=== PATIENT | female | born 1945 | race Caucasian/White ===

== ENCOUNTER → 2016-08-22 | Outpatient (REF) | payer MEDICARE ==
[2016-08-22 11:09] LABS: MEAN CORPUSCULAR HEMOGLOBIN 32.1 pg (27.0-33.0); MEAN CORPUSCULAR HGB CONC 31.6 g/dl (32.0-36.5); MEAN CORPUSCULAR VOLUME 101.6 fl (80.0-96.0); WHITE BLOOD COUNT 5.2 K/mm3 (4.0-10.0)
[2016-08-22 12:06] LABS: ALBUMIN 3.6 GM/DL (3.2-5.2); ALBUMIN/GLOBULIN RATIO 1.24 (1.00-1.93); ALKALINE PHOSPHATASE 56 U/L (45-117); ALT/SGPT 23 U/L (12-78); ANION GAP 9 MEQ/L (8-16); AST/SGOT 14 U/L (15-37); BILIRUBIN,TOTAL 0.5 MG/DL (0.2-1.0); BLOOD UREA NITROGEN 16 MG/DL (7-18); CALCIUM LEVEL 9.2 MG/DL (8.8-10.2); CARBON DIOXIDE LEVEL 28 MEQ/L (21-32); CHLORIDE LEVEL 104 MEQ/L (98-107); CHOLESTEROL LEVEL 181 MG/DL (<200); CREATININE FOR GFR 0.68 MG/DL (0.55-1.02); GLOMERULAR FILTRATION RATE > 60.0 (>39); GLUCOSE, FASTING 82 MG/DL (83-110); POTASSIUM SERUM 4.5 MEQ/L (3.5-5.1); SODIUM LEVEL 141 MEQ/L (136-145); TOTAL PROTEIN 6.5 GM/DL (6.4-8.2); TRIGLYCERIDES LEVEL 52 MG/DL (<150)
== END ==
LOC: M SFHCPLAZ 08:32
PROVIDERS: ATTEND Internal Medicine
DX: Z00.00 Encounter for general adult medical examination without abnormal findings (principal); M81.0 Age-related osteoporosis without current pathological fracture; Z85.3 Personal history of malignant neoplasm of breast

== ENCOUNTER → 2016-10-01 | Outpatient (REF) | payer MEDICARE | LOC: M SFHCPLAZ 11:26 | PROVIDERS: ATTEND Dermatology | DX: C44.519 Basal cell carcinoma of skin of other part of trunk (principal); D18.01 Hemangioma of skin and subcutaneous tissue; C44.329 Squamous cell carcinoma of skin of other parts of face | CPT/HCPCS: 11100; 11101; 88305; G0463 ==

== ENCOUNTER → 2016-12-31 | Outpatient (CLI) | payer MEDICARE ==
--- NOTE | 2016-12-31 14:14 | REP ---
Clinical: Pelvic pain. Comparison: 12/26/2013 . Technique: Transabdominal pelvic ultrasound followed by transvaginal examination for better evaluation of the endometrium and adnexa with color Doppler evaluation of the ovaries. Findings: Bladder is unremarkable and measures 10.5 x 8.5 x 7.6 cm . Anteverted myomatous uterus measures 6.8 x 3.2 x 4.7 cm . The endometrial complex measures 2.2 mm thickness. Partially calcified left anterior fibroid measures 1.6 cm maximal diameter; partially calcified posterior right fibroid measures 1.6 cm maximal diameter. Right ovary is normal in appearance and vascularity without evidence for torsion. Right ovary measures 2.0 x 1.3 x 1.0 cm ; R I = 0.31 . Left ovary is not visualized. No pelvic fluid or adnexal mass lesion . Impression: Anteverted uterus with two partially calcified fibroids similar to prior examination. Normal right ovary. Left ovary not visualized. Signed by Bebo Whitaker MD 12/31/2016 02:05 P
== END ==
LOC: M RAD 13:20
PROVIDERS: ATTEND Obstetrics & Gynecology
DX: R10.2 Pelvic and perineal pain (principal); N85.4 Malposition of uterus

== ENCOUNTER → 2017-01-07 | Outpatient (REF) | payer MEDICARE | LOC: M SFHCPLAZ 11:38 | PROVIDERS: ATTEND Dermatology | DX: C44.722 Squamous cell carcinoma of skin of right lower limb, including hip (principal) | CPT/HCPCS: 11100; 11900; 17000; 17003; 88305; G0463; J3301 ==

== ENCOUNTER → 2017-08-27 | Outpatient (REF) | payer MEDICARE ==
[2017-08-27 12:28] LABS: HEMATOCRIT 36.2 % (36.0-47.0); HEMOGLOBIN 11.8 g/dl (12.0-16.0); MEAN CORPUSCULAR HEMOGLOBIN 32.2 pg (27.0-33.0); MEAN CORPUSCULAR HGB CONC 32.6 g/dl (32.0-36.5); MEAN CORPUSCULAR VOLUME 98.6 fl (80.0-96.0); PLATELET COUNT, AUTOMATED 252 10^3/uL (150-450); RED BLOOD COUNT 3.67 10^6/uL (4.00-5.40); WHITE BLOOD COUNT 4.9 10^3/uL (4.0-10.0)
[2017-08-27 13:01] LABS: ALBUMIN 3.6 GM/DL (3.2-5.2); ALBUMIN/GLOBULIN RATIO 1.33 (1.00-1.93); ALKALINE PHOSPHATASE 54 U/L (45-117); ALT/SGPT 19 U/L (12-78); ANION GAP 6 MEQ/L (8-16); AST/SGOT 16 U/L (7-37); BILIRUBIN,TOTAL 0.3 MG/DL (0.2-1.0); BLOOD UREA NITROGEN 20 MG/DL (7-18); CALCIUM LEVEL 9.3 MG/DL (8.8-10.2); CARBON DIOXIDE LEVEL 29 MEQ/L (21-32); CHLORIDE LEVEL 108 MEQ/L (98-107); CHOLESTEROL LEVEL 177 MG/DL (<200); CHOLESTEROL RISK RATIO 2.458 (<5); CREATININE FOR GFR 0.63 MG/DL (0.55-1.02); GLOMERULAR FILTRATION RATE > 60.0 (>39); GLUCOSE, FASTING 88 MG/DL (83-110); HDL CHOLESTEROL 72 MG/DL (>40); LDL CHOLESTEROL 93.4 MG/DL (<100); NON-HDL-C 105 MG/DL; POTASSIUM SERUM 4.3 MEQ/L (3.5-5.1); SODIUM LEVEL 143 MEQ/L (136-145); TOTAL PROTEIN 6.3 GM/DL (6.4-8.2); TRIGLYCERIDES LEVEL 58 MG/DL (<150)
== END ==
LOC: M SFHCPLAZ 08:04
DX: Z00.00 Encounter for general adult medical examination without abnormal findings (principal); M81.0 Age-related osteoporosis without current pathological fracture; Z85.3 Personal history of malignant neoplasm of breast; Z79.899 Other long term (current) drug therapy
CPT/HCPCS: 80053

== ENCOUNTER → 2018-08-26 | Outpatient (REF) | payer MEDICARE ==
[2018-08-26 13:14] LABS: HEMATOCRIT 37.7 % (36.0-47.0); HEMOGLOBIN 12.2 g/dl (12.0-15.5); MEAN CORPUSCULAR HEMOGLOBIN 32.4 pg (27.0-33.0); MEAN CORPUSCULAR HGB CONC 32.4 g/dl (32.0-36.5); MEAN CORPUSCULAR VOLUME 100.3 fl (80.0-96.0); PLATELET COUNT, AUTOMATED 228 10^3/uL (150-450); RED BLOOD COUNT 3.76 10^6/uL (4.00-5.40); WHITE BLOOD COUNT 6.2 10^3/uL (4.0-10.0)
[2018-08-26 13:43] LABS: ALBUMIN 3.7 GM/DL (3.2-5.2); ALT/SGPT 18 U/L (12-78); BILIRUBIN,TOTAL 0.5 MG/DL (0.2-1.0); BLOOD UREA NITROGEN 16 MG/DL (7-18); CALCIUM LEVEL 9.7 MG/DL (8.8-10.2); CARBON DIOXIDE LEVEL 28 MEQ/L (21-32); CHLORIDE LEVEL 106 MEQ/L (98-107); CHOLESTEROL LEVEL 175 MG/DL (<200); CREATININE FOR GFR 0.66 MG/DL (0.55-1.30); GLOMERULAR FILTRATION RATE > 60.0 (>39); GLUCOSE, FASTING 79 MG/DL (70-100); HDL CHOLESTEROL 70 MG/DL (>40); LDL CHOLESTEROL 92 MG/DL (<100); NON-HDL-C 105 MG/DL; POTASSIUM SERUM 4.4 MEQ/L (3.5-5.1); SODIUM LEVEL 139 MEQ/L (136-145); TOTAL PROTEIN 6.5 GM/DL (6.4-8.2); TRIGLYCERIDES LEVEL 67 MG/DL (<150)
== END ==
LOC: M SFHCPLAZ 08:32
PROVIDERS: ATTEND Internal Medicine
DX: Z85.3 Personal history of malignant neoplasm of breast (principal); Z00.00 Encounter for general adult medical examination without abnormal findings

== ENCOUNTER → 2020-02-20 | Outpatient (CLI) | payer MEDICARE ==
[~2020-02-20] MED LIST: CALC600C3 PO; META0.52 PO; NOXI1TAB PO; PROL60SO SC
== END ==
LOC: M LABSMTC 11:13
PROVIDERS: ATTEND Anesthesiology
DX: Z01.818 Encounter for other preprocedural examination (principal); Z11.59 Encounter for screening for other viral diseases
CPT/HCPCS: C9803; U0003

== ENCOUNTER 2020-02-23 12:34 | Day surgery (SDC) | payer MEDICARE ==
[~2020-02-23] VITALS: Ht 165.1 cm; Wt 59.1 kg
[~2020-02-23 12:34] MED LIST changes: +LR 1,000 ML IV ONE
[2020-02-23] MEDS ORDERED: LIDOCAINE VISCOUS 2% SOLN 15ML UDC As Ordered ONE (13:48)
[2020-02-23] MEDS ORDERED: CETACAINE SPRAY 5GM As Ordered ONE (13:48)
[2020-02-23] MEDS ORDERED: propofoL 200 MG/20 ML VIAL As Ordered ONE (14:04)
[2020-02-23] MEDS ORDERED: LIDOCAINE 2% 100MG/5ML SDV (FOR ANES.) As Ordered ONE (14:04)
[2020-02-23 15:20] VITALS: BP 154/72
--- NOTE | 2020-02-23 22:50 | T-ECHO ---
DATE OF PROCEDURE: 02/23/2020 REFERRING PHYSICIAN: Dr. Jaylon Álvarez PREPROCEDURE DIAGNOSIS: Mitral valve prolapse with mitral regurgitation. PREPROCEDURE DIAGNOSIS: Mitral valve prolapse with mitral regurgitation. PRINCIPAL FINDINGS: Mitral valve prolapse of both mitral leaflets, especially the posterior mitral leaflet. Associated broken chordae involving the posterior mitral leaflet. Associated moderately-severe mitral regurgitation. PROCEDURE PERFORMED: Transesophageal echocardiogram. PROCEDURE PERFORMED BY: Jaylon Álvarze MD PERSONAL CONSULTANT: None. IV SEDATION: Monitored anesthetic care (propofol) as administered by [employer] RN CARE COORDINATOR. COMPLICATIONS: None. DESCRIPTION OF PROCEDURE: The patient received viscous lidocaine to gargle and swallow. Following this, she received propofol IV as administered by the [employer] RN CARE COORDINATOR. After receiving adequate sedation, esophageal intubation was accomplished by Dr. Álvarez using a Shira three-dimensional transesophageal echocardiogram probe. Rhythm was sinus. The left and right ventricle appeared normal in size and systolic function. Left ventricle ejection fraction was 65%-70% by visual estimate. No regional wall motion abnormalities of the ventricles. The left atrium appeared to be at least mildly enlarged. The left atrial appendage appeared to be at least moderately enlarged. Pulse wave Doppler in the left lower pulmonary vein did not show any systolic flow reversal. The atrial septum appeared intact anatomically and by color flow Doppler. The mitral leaflets were diffusely myxomatous. There was mild prolapse of the anterior mitral leaflet, and there was fairly extensive prolapse involving the posterior mitral leaflet, especially the middle scallop. Associated with the middle scallop of the posterior mitral leaflet were some broken chordae. There were two jets of mitral valve regurgitation for a combined total degree of mitral valve regurgitation judged to be moderately-severe. One of the jets was central and the other jet was a wall jet directed anteriorly along the anterior mitral leaflet. The tricuspid leaflets were only moderately well visualized but appear to be normal. Very mild tricuspid regurgitation. Aortic valve was 3-cusp and was structurally and functionally normal. Pulmonic valve was structurally and functionally normal. No pulmonic regurgitation. No pericardial effusion. Distal aortic arch and descending thoracic aorta were normal. CONCLUSIONS: 1. Myxomatous mitral leaflets with mild prolapse of the anterior mitral leaflet and extensive prolapse of the posterior mitral leaflet, especially the mid scallop of the posterior mitral leaflet (P2). Associated broken chordae in association with the posterior mitral leaflet. Moderately-severe mitral regurgitation. 2. No tricuspid valve prolapse. 3. At least mild left atrial enlargement and moderate dilatation of the left atrial appendage. 4. Normal left and right ventricle systolic function and size. Left ventricular ejection fraction (LVEF) 65-70%. ADDITIONAL COMMENTS AND RECOMMENDATIONS: My plan is to meet with the patient in the office next week to go over results of the transesophageal echocardiogram, at which time I will recommend mitral valve repair.
== END 2020-02-23 15:32 | disposition home or self-care (01) ==
LOC: M SDC 12:34
PROVIDERS: ATTEND Internal Medicine Cardiovascular Disease
DX: I34.1 Nonrheumatic mitral (valve) prolapse (principal); I34.0 Nonrheumatic mitral (valve) insufficiency; I44.0 Atrioventricular block, first degree; Z85.3 Personal history of malignant neoplasm of breast; Z88.2 Allergy status to sulfonamides; Z79.899 Other long term (current) drug therapy; Z92.21 Personal history of antineoplastic chemotherapy; Z92.3 Personal history of irradiation

== ENCOUNTER → 2020-02-25 | Outpatient (CLI) | payer MEDICARE ==
[~2020-02-25] MED LIST changes: -LR 1,000 ML IV ONE
== END ==
LOC: M LABSMTC 11:02
PROVIDERS: ATTEND Anesthesiology
DX: Z01.818 Encounter for other preprocedural examination (principal); Z11.59 Encounter for screening for other viral diseases
CPT/HCPCS: C9803; U0003

== ENCOUNTER → 2020-05-02 | Outpatient (CLI) | payer MEDICARE ==
[2020-05-02 11:15] LABS: BASO # 0.1 10^3/uL (0.0-0.2); BASO % 0.6 % (0.0-1.0); LYMPH # 2.5 10^3/uL (1.5-5.0); MEAN CORPUSCULAR HEMOGLOBIN 30.7 pg (27.0-33.0); MEAN CORPUSCULAR HGB CONC 31.3 g/dl (32.0-36.5); MEAN CORPUSCULAR VOLUME 98.2 fl (80.0-96.0); MONO # 0.9 10^3/uL (0.0-0.8); MONO % 11.2 % (0.0-5.0); NEUTROPHILS # 4.3 10^3/uL (1.5-8.5); NEUTROPHILS % 55.9 % (36.0-66.0); PLATELET COUNT, AUTOMATED 323 10^3/uL (150-450); RED BLOOD COUNT 3.26 10^6/uL (4.00-5.40); WHITE BLOOD COUNT 7.7 10^3/uL (4.0-10.0)
[2020-05-02 11:23] LABS: ALBUMIN 3.2 GM/DL (3.2-5.2); ALT/SGPT 71 U/L (12-78); BILIRUBIN,TOTAL 0.5 MG/DL (0.2-1.0); BLOOD UREA NITROGEN 17 MG/DL (7-18); CARBON DIOXIDE LEVEL 27 MEQ/L (21-32); CHLORIDE LEVEL 108 MEQ/L (98-107); CREATININE FOR GFR 0.56 MG/DL (0.55-1.30); GLOMERULAR FILTRATION RATE > 60.0 (>39); GLUCOSE, FASTING 86 MG/DL (70-100); POTASSIUM SERUM 4.6 MEQ/L (3.5-5.1); SODIUM LEVEL 138 MEQ/L (136-145); TOTAL PROTEIN 5.9 GM/DL (6.4-8.2)
== END ==
LOC: M PLALAB 08:31
PROVIDERS: ATTEND Internal Medicine
DX: D62 Acute posthemorrhagic anemia (principal); E87.6 Hypokalemia

== ENCOUNTER → 2020-05-29 | Outpatient (CLI) | payer MEDICARE ==
[2020-05-29 10:55] LABS: HEMATOCRIT 32.7 % (36.0-47.0); HEMOGLOBIN 10.1 g/dl (12.0-15.5); MEAN CORPUSCULAR HEMOGLOBIN 29.6 pg (27.0-33.0); MEAN CORPUSCULAR HGB CONC 30.9 g/dl (32.0-36.5); MEAN CORPUSCULAR VOLUME 95.9 fl (80.0-96.0); PLATELET COUNT, AUTOMATED 448 10^3/uL (150-450); RED BLOOD COUNT 3.41 10^6/uL (4.00-5.40); WHITE BLOOD COUNT 6.6 10^3/uL (4.0-10.0)
== END ==
LOC: M PLALAB 09:01
PROVIDERS: ATTEND Internal Medicine
DX: D64.9 Anemia, unspecified (principal)

== ENCOUNTER → 2020-08-30 | Outpatient (REF) | payer MEDICARE ==
[2020-08-30 10:37] LABS: HEMATOCRIT 38.2 % (36.0-47.0); HEMOGLOBIN 11.7 g/dl (12.0-15.5); MEAN CORPUSCULAR HEMOGLOBIN 29.1 pg (27.0-33.0); MEAN CORPUSCULAR HGB CONC 30.6 g/dl (32.0-36.5); PLATELET COUNT, AUTOMATED 226 10^3/uL (150-450); RED BLOOD COUNT 4.02 10^6/uL (4.00-5.40); WHITE BLOOD COUNT 6.8 10^3/uL (4.0-10.0)
[2020-08-30 11:20] LABS: ALBUMIN 3.8 GM/DL (3.2-5.2); ALT/SGPT 26 U/L (12-78); BILIRUBIN,TOTAL 0.5 MG/DL (0.2-1.0); BLOOD UREA NITROGEN 18 MG/DL (7-18); CARBON DIOXIDE LEVEL 29 MEQ/L (21-32); CHLORIDE LEVEL 105 MEQ/L (98-107); CHOLESTEROL LEVEL 188 MG/DL (<200); CHOLESTEROL RISK RATIO 2.611 (<5); CREATININE FOR GFR 0.72 MG/DL (0.55-1.30); GLOMERULAR FILTRATION RATE > 60.0 (>39); GLUCOSE, FASTING 83 MG/DL (70-100); HDL CHOLESTEROL 72 MG/DL (>40); LDL CHOLESTEROL 101 MG/DL (<100); NON-HDL-C 116 MG/DL; POTASSIUM SERUM 4.3 MEQ/L (3.5-5.1); SODIUM LEVEL 139 MEQ/L (136-145); TOTAL PROTEIN 6.2 GM/DL (6.4-8.2); TRIGLYCERIDES LEVEL 74 MG/DL (<150)
== END ==
LOC: M PLALAB 08:14
PROVIDERS: ATTEND Internal Medicine
DX: Z00.00 Encounter for general adult medical examination without abnormal findings (principal); Z85.3 Personal history of malignant neoplasm of breast; Z79.899 Other long term (current) drug therapy

== ENCOUNTER → 2020-10-25 | Outpatient (REF) | payer MEDICARE ==
[2020-10-25 12:43] LABS: APPEARANCE, URINE CLEAR (CLEAR); BACTERIA, URINE AUTO 1+ (NEGATIVE); BILIRUBIN, URINE AUTO NEGATIVE (NEGATIVE); BLOOD, URINE BLOOD NEGATIVE (NEGATIVE); COLOR, URINE YELLOW (YELLOW); GLUCOSE, URINE (UA) AUTO NEGATIVE (NEGATIVE); KETONE, URINE AUTO NEGATIVE (NEGATIVE); LEUKOCYTE ESTERASE, URINE AUTO 3+ (NEGATIVE); NITRITE, URINE AUTO NEGATIVE (NEGATIVE); PROTEIN, URINE AUTO NEGATIVE (NEGATIVE); RBC, URINE AUTO 0 /HPF (0-3); SQUAMOUS EPITHELIAL CELL UR AU 3 /HPF (0-6); UROBILINOGEN, URINE AUTO 0.2 mg/dL (0.0-2.0); WBC, URINE AUTO 4 /HPF (0-3)
== END ==
LOC: M LAB REF 12:17
PROVIDERS: ATTEND Obstetrics & Gynecology
DX: N39.0 Urinary tract infection, site not specified (principal)

== ENCOUNTER → 2021-03-04 | Outpatient (CLI) | payer MEDICARE ==
[~2021-03-04] MED LIST changes: +COLA100C5 PO; +REFR0.5D8 OP; +SENN-23 PO
[2021-03-04 10:39] LABS: BASO # 0.1 10^3/uL (0.0-0.2); BASO % 0.6 % (0.0-1.0); HEMATOCRIT 35.4 % (36.0-47.0); HEMOGLOBIN 11.4 g/dl (12.0-15.5); LYMPH # 2.7 10^3/uL (1.5-5.0); LYMPH % 34.1 % (24.0-44.0); MEAN CORPUSCULAR HEMOGLOBIN 31.9 pg (27.0-33.0); MEAN CORPUSCULAR HGB CONC 32.2 g/dl (32.0-36.5); MEAN CORPUSCULAR VOLUME 99.2 fl (80.0-96.0); MONO # 0.6 10^3/uL (0.0-0.8); NEUTROPHILS # 4.5 10^3/uL (1.5-8.5); PLATELET COUNT, AUTOMATED 195 10^3/uL (150-450); RED BLOOD COUNT 3.57 10^6/uL (4.00-5.40); WHITE BLOOD COUNT 7.8 10^3/uL (4.0-10.0)
[2021-03-04 11:01] LABS: ALBUMIN 3.7 GM/DL (3.2-5.2); ALT/SGPT 25 U/L (12-78); BILIRUBIN,TOTAL 0.5 MG/DL (0.2-1.0); BLOOD UREA NITROGEN 16 MG/DL (7-18); CALCIUM LEVEL 9.8 MG/DL (8.8-10.2); CARBON DIOXIDE LEVEL 28 MEQ/L (21-32); CHLORIDE LEVEL 108 MEQ/L (98-107); CHOLESTEROL LEVEL 178 MG/DL (<200); CHOLESTEROL RISK RATIO 2.253 (<5); CREATININE FOR GFR 0.66 MG/DL (0.55-1.30); GLOMERULAR FILTRATION RATE > 60.0 (>39); GLUCOSE, FASTING 85 MG/DL (70-100); HDL CHOLESTEROL 79 MG/DL (>40); LDL CHOLESTEROL 89 MG/DL (<100); NON-HDL-C 99 MG/DL; POTASSIUM SERUM 4.4 MEQ/L (3.5-5.1); SODIUM LEVEL 141 MEQ/L (136-145); TOTAL PROTEIN 6.2 GM/DL (6.4-8.2); TRIGLYCERIDES LEVEL 51 MG/DL (<150)
== END ==
LOC: M LAB 09:46
PROVIDERS: ATTEND Internal Medicine
DX: Z11.59 Encounter for screening for other viral diseases (principal); Z85.3 Personal history of malignant neoplasm of breast; Z79.899 Other long term (current) drug therapy
CPT/HCPCS: 36415; 80053; 80061; 85025; G0472

== ENCOUNTER → 2021-03-04 | Outpatient (CLI) | payer MEDICARE | LOC: M LABSMTC 11:06 | PROVIDERS: ATTEND Anesthesiology | DX: Z01.812 Encounter for preprocedural laboratory examination (principal); Z20.822 Contact with and (suspected) exposure to COVID-19 ==

== ENCOUNTER 2021-03-08 08:09 | Day surgery (SDC) | payer MEDICARE ==
[~2021-03-08] VITALS: Ht 162.6 cm; Wt 54.0 kg
[~2021-03-08 08:09] MED LIST changes: +NS 1,000 ML IV ONE
[2021-03-08] MEDS ORDERED: propofoL 200 MG/20 ML VIAL As Ordered ONE ×2 (09:16→09:46)
[2021-03-08] MEDS ORDERED: LIDOCAINE 2% 100MG/5ML SDV (FOR ANES.) As Ordered ONE (09:16)
--- NOTE | 2021-03-08 10:12 | ROOR ---
Patient Name: Carmel Leon Procedure Date: 03/08/2021 8:33 AM Date of : 1945 Age: 76 Room: [facility] Gender: Female Note Status: Finalized Procedure: Colonoscopy Indications: High risk colon cancer surveillance: Personal history of colonic polyps, Family history of colon cancer in a first-degree relative before age 60 years Providers: Jaylon Scott MD Referring MD: Damon Stewart MD Requesting Provider: Medicines: Monitored Anesthesia Care Complications: No immediate complications. Procedure: Pre-Anesthesia Assessment: - The heart rate, respiratory rate, oxygen saturations, blood pressure, adequacy of pulmonary ventilation, and response to care were monitored throughout the procedure. The Colonoscope was introduced through the anus and advanced to the cecum, identified by appendiceal orifice and ileocecal valve. The colonoscopy was performed with difficulty due to inadequate bowel prep, a redundant colon and significant looping. The patient tolerated the procedure well. The quality of the bowel preparation was suboptimal. Findings: The perianal and digital rectal examinations were normal. A 5 mm polyp was found in the cecum. The polyp was sessile. The polyp was removed with a cold snare. Resection and retrieval were complete. The colon was significantly redundant. The exam was otherwise without abnormality. Impression: - Preparation of the colon was suboptimal. - One 5 mm polyp in the cecum, removed with a cold snare. Resected and retrieved. - Redundant colon. - The examination was otherwise normal. Recommendation: - Repeat colonoscopy in 2 years because the bowel preparation was suboptimal. Procedure Code(s): --- Professional --- 03732, Colonoscopy, flexible; with removal of tumor(s), polyp(s), or other lesion(s) by snare technique Diagnosis Code(s): --- Professional --- Z86.010, Personal history of colonic polyps K63.5, Polyp of colon Z80.0, Family history of malignant neoplasm of digestive organs Q43.8, Other specified congenital malformations of intestine CPT copyright 2019 [employer]. All rights reserved. The codes documented in this report are preliminary and upon consulting analyst review may be revised to meet current compliance requirements. Jaylon Scott MD Jaylon Scott MD 03/08/2021 10:12:18 AM Electronically signed by Jaylon Scott MD Number of Addenda: 0 Note Initiated On: 03/08/2021 8:33 AM Estimated Blood Loss: Estimated blood loss: none.
[2021-03-08 10:30] VITALS: BP 122/70
== END 2021-03-08 10:46 | disposition home or self-care (01) ==
LOC: M OPP 08:09
PROVIDERS: ATTEND Internal Medicine Gastroenterology
DX: Z12.11 Encounter for screening for malignant neoplasm of colon (principal); Z86.010 Personal history of colon polyps; Z80.0 Family history of malignant neoplasm of digestive organs; Q43.8 Other specified congenital malformations of intestine; D12.0 Benign neoplasm of cecum; Z79.899 Other long term (current) drug therapy; Z85.3 Personal history of malignant neoplasm of breast; Z92.3 Personal history of irradiation; Z92.21 Personal history of antineoplastic chemotherapy

== ENCOUNTER → 2021-08-02 | Outpatient (CLI) | payer MEDICARE ==
[~2021-08-02] MED LIST changes: -NS 1,000 ML IV ONE
== END ==
LOC: M RAD 10:08
PROVIDERS: ATTEND Dermatology
DX: D48.5 Neoplasm of uncertain behavior of skin (principal)

== ENCOUNTER → 2022-02-25 | Outpatient (REF) | payer MEDICARE ==
[2022-02-25 11:52] LABS: BASO # 0.1 10^3/uL (0.0-0.2); BASO % 0.8 % (0.0-1.0); EOS # 0.1 10^3/uL (0.0-0.5); EOS % 1.4 % (0.0-3.0); HEMATOCRIT 36.8 % (36.0-47.0); LYMPH # 4.2 10^3/uL (1.5-5.0); LYMPH % 54.8 % (24.0-44.0); MEAN CORPUSCULAR HEMOGLOBIN 32.2 pg (27.0-33.0); MEAN CORPUSCULAR HGB CONC 32.6 g/dl (32.0-36.5); MEAN CORPUSCULAR VOLUME 98.7 fl (80.0-96.0); MONO # 0.7 10^3/uL (0.0-0.8); MONO % 8.5 % (2.0-8.0); NEUTROPHILS # 2.6 10^3/uL (1.5-8.5); NEUTROPHILS % 34.4 % (36.0-66.0); PLATELET COUNT, AUTOMATED 187 10^3/uL (150-450); RED BLOOD COUNT 3.73 10^6/uL (4.00-5.40); WHITE BLOOD COUNT 7.7 10^3/uL (4.0-10.0)
[2022-02-25 13:18] LABS: ALBUMIN 3.6 GM/DL (3.2-5.2); ALT/SGPT 27 U/L (12-78); BILIRUBIN,TOTAL 0.6 MG/DL (0.2-1.0); BLOOD UREA NITROGEN 17 MG/DL (7-18); CARBON DIOXIDE LEVEL 29 MEQ/L (21-32); CHLORIDE LEVEL 107 MEQ/L (98-107); CHOLESTEROL LEVEL 161 MG/DL (<200); CHOLESTEROL RISK RATIO 2.267 (<5); CREATININE FOR GFR 0.74 MG/DL (0.55-1.30); GLOMERULAR FILTRATION RATE > 60.0 (>39); GLUCOSE, FASTING 93 MG/DL (70-100); HDL CHOLESTEROL 71 MG/DL (>40); LDL CHOLESTEROL 78 MG/DL (<100); NON-HDL-C 90 MG/DL; SODIUM LEVEL 139 MEQ/L (136-145); TOTAL PROTEIN 5.9 GM/DL (6.4-8.2); TRIGLYCERIDES LEVEL 59 MG/DL (<150)
== END ==
LOC: M SFHCCLAY 08:12
PROVIDERS: ATTEND Internal Medicine
DX: Z85.3 Personal history of malignant neoplasm of breast (principal); Z71.89 Other specified counseling

== ENCOUNTER → 2022-07-16 | Outpatient (REF) | payer MEDICARE ==
[2022-07-16 18:32] LABS: IMMUNOGLOBULIN A 168.3 MG/DL (40-350)
[2022-07-16 18:35] LABS: IMMUNOGLOBULIN M 40.9 MG/DL (50-300)
[2022-07-16 20:07] LABS: URIC ACID 5.3 MG/DL (3.1-7.8)
== END ==
LOC: M LAB REF 16:16
PROVIDERS: ATTEND Internal Medicine
DX: C91.10 Chronic lymphocytic leukemia of B-cell type not having achieved remission (principal)

== ENCOUNTER → 2022-08-15 | Outpatient (REF) | payer MEDICARE | LOC: M LAB REF 11:33 | PROVIDERS: ATTEND Internal Medicine | DX: M81.0 Age-related osteoporosis without current pathological fracture (principal) ==

== ENCOUNTER → 2022-09-04 | Outpatient (CLI) | payer MEDICARE ==
[~2022-09-04] MED LIST changes: +ISOVUE-370 76% 100ML VIAL As Ordered ONE
== END ==
LOC: M RAD 08:43
DX: C91.10 Chronic lymphocytic leukemia of B-cell type not having achieved remission (principal); K76.89 Other specified diseases of liver; Z97.8 Presence of other specified devices
CPT/HCPCS: 71260; 74177; Q9967

== ENCOUNTER 2023-05-28 08:32 | Day surgery (SDC) | payer MEDICARE ==
[~2023-05-28] VITALS: Ht 160 cm; Wt 57.2 kg
[~2023-05-28 08:32] MED LIST changes: +AMOX500T; -ISOVUE-370 76% 100ML VIAL As Ordered ONE; +LIDOCAINE 2% 100MG/5ML SDV (FOR ANES.) As Ordered ONE; +NS 1,000 ML IV ONE; +propofoL 200 MG/20 ML VIAL As Ordered ONE
[2023-05-28] MEDS ORDERED: propofoL 200 MG/20 ML VIAL As Ordered ONE (10:23)
[2023-05-28 10:35] VITALS: TEMP 97
[2023-05-28 10:51] VITALS: BP 115/58; O2SAT 96
== END 2023-05-28 11:01 | disposition home or self-care (01) ==
LOC: M OPP 08:32
PROVIDERS: ATTEND Internal Medicine Gastroenterology
DX: Z12.11 Encounter for screening for malignant neoplasm of colon (principal); Z86.010 Personal history of colon polyps; Z80.0 Family history of malignant neoplasm of digestive organs; I34.9 Nonrheumatic mitral valve disorder, unspecified; Z79.2 Long term (current) use of antibiotics; Z79.51 Long term (current) use of inhaled steroids; Z79.52 Long term (current) use of systemic steroids; Z79.899 Other long term (current) drug therapy

== ENCOUNTER → 2023-08-28 | Outpatient (CLI) | payer MEDICARE ==
[~2023-08-28] MED LIST changes: -LIDOCAINE 2% 100MG/5ML SDV (FOR ANES.) As Ordered ONE; -NS 1,000 ML IV ONE; -propofoL 200 MG/20 ML VIAL As Ordered ONE
[2023-08-28 14:10] LABS: BASO # 0.1 10^3/uL (0.0-0.2); BASO % 0.5 % (0.0-1.0); HEMOGLOBIN 12.3 g/dl (12.0-15.5); LYMPH # 5.6 10^3/uL (1.5-5.0); LYMPH % 56.6 % (24.0-44.0); MEAN CORPUSCULAR HEMOGLOBIN 32.4 pg (27.0-33.0); MEAN CORPUSCULAR HGB CONC 32.4 g/dl (32.0-36.5); MONO # 0.6 10^3/uL (0.0-0.8); MONO % 5.5 % (2.0-8.0); NEUTROPHILS # 3.7 10^3/uL (1.5-8.5); NEUTROPHILS % 37.3 % (36.0-66.0); PLATELET COUNT, AUTOMATED 177 10^3/uL (150-450)
[2023-08-28 14:15] LABS: LDH LACTATE DEHYDROGENASE 234 U/L (120-246)
[2023-08-28 14:16] LABS: ALBUMIN 3.8 G/DL (3.2-5.2); ALKALINE PHOSPHATASE 50 U/L (46-116); ALT/SGPT 20 U/L (7.0-40); AST/SGOT 17 U/L (<34); BILIRUBIN,TOTAL 0.5 MG/DL (0.3-1.2); BLOOD UREA NITROGEN 19 MG/DL (9-23); CALCIUM LEVEL 10.2 MG/DL (8.3-10.6); CARBON DIOXIDE LEVEL 31 MMOL/L (20-31); CHLORIDE LEVEL 108 MMOL/L (98-107); CREATININE FOR GFR 0.61 MG/DL (0.55-1.30); GLOMERULAR FILTRATION RATE > 60.0 (>39); GLUCOSE, FASTING 91 MG/DL (74-106); POTASSIUM SERUM 4.4 MMOL/L (3.5-5.1); SODIUM LEVEL 140 MMOL/L (136-145); TOTAL PROTEIN 6.3 G/DL (5.7-8.2)
== END ==
LOC: M PLALAB 11:24
PROVIDERS: ATTEND Nurse Practitioner
DX: C91.10 Chronic lymphocytic leukemia of B-cell type not having achieved remission (principal)

== ENCOUNTER → 2023-11-25 | Outpatient (CLI) | payer MEDICARE | LOC: M WHC 10:41 | PROVIDERS: ATTEND Nurse Practitioner Family | DX: D25.9 Leiomyoma of uterus, unspecified (principal); R10.2 Pelvic and perineal pain ==

== ENCOUNTER → 2024-02-29 | Outpatient (CLI) | payer MEDICARE ==
[~2024-02-29] MED LIST changes: +CENT1TAB PO
[2024-02-29 13:40] LABS: BASO # 0.1 10^3/uL (0.0-0.2); BASO % 0.9 % (0.0-1.0); HEMATOCRIT 33.9 % (36.0-47.0); HEMOGLOBIN 11.3 g/dl (12.0-15.5); LYMPH # 6.5 10^3/uL (1.5-5.0); MEAN CORPUSCULAR HEMOGLOBIN 32.8 pg (27.0-33.0); MEAN CORPUSCULAR HGB CONC 33.3 g/dl (32.0-36.5); MEAN CORPUSCULAR VOLUME 98.3 fl (80.0-96.0); MONO # 0.7 10^3/uL (0.0-0.8); MONO % 6.5 % (2.0-8.0); NEUTROPHILS # 3.3 10^3/uL (1.5-8.5); NEUTROPHILS % 31.4 % (36.0-66.0); PLATELET COUNT, AUTOMATED 172 10^3/uL (150-450); RED BLOOD COUNT 3.45 10^6/uL (4.00-5.40); WHITE BLOOD COUNT 10.6 10^3/uL (4.0-10.0)
[2024-02-29 14:23] LABS: ALBUMIN 3.7 G/DL (3.2-5.2); ALKALINE PHOSPHATASE 44 U/L (46-116); ALT/SGPT 22 U/L (7.0-40); AST/SGOT 15 U/L (<34); BILIRUBIN,TOTAL 0.6 MG/DL (0.3-1.2); BLOOD UREA NITROGEN 20 MG/DL (9-23); CALCIUM LEVEL 10.3 MG/DL (8.3-10.6); CARBON DIOXIDE LEVEL 29 MMOL/L (20-31); CHLORIDE LEVEL 107 MMOL/L (98-107); CREATININE FOR GFR 0.72 MG/DL (0.55-1.30); GLOMERULAR FILTRATION RATE > 60.0 (>32); GLUCOSE, FASTING 90 MG/DL (74-106); POTASSIUM SERUM 3.8 MMOL/L (3.5-5.1); SODIUM LEVEL 139 MMOL/L (136-145); TOTAL PROTEIN 5.9 G/DL (5.7-8.2)
== END ==
LOC: M LAB 13:11
PROVIDERS: ATTEND Nurse Practitioner
DX: C91.10 Chronic lymphocytic leukemia of B-cell type not having achieved remission (principal)

== ENCOUNTER → 2024-07-05 | Outpatient (REF) | payer MEDICARE | LOC: M LAB REF 12:29 | PROVIDERS: ATTEND Internal Medicine | DX: N39.0 Urinary tract infection, site not specified (principal) ==

== ENCOUNTER → 2024-08-29 | Outpatient (CLI) | payer MEDICARE ==
[~2024-08-29] MED LIST changes: +ESTR62CR; +FLUO1CRE2
== END ==
LOC: M RAD 07:09
PROVIDERS: ATTEND Internal Medicine Hematology & Oncology
DX: R91.8 Other nonspecific abnormal finding of lung field (principal)

== ENCOUNTER → 2024-08-29 | Outpatient (CLI) | payer MEDICARE ==
[2024-08-29 07:51] LABS: BASO # 0.1 10^3/uL (0.0-0.2); BASO % 0.5 % (0.0-1.0); EOS # 0.1 10^3/uL (0.0-0.5); HEMATOCRIT 34.7 % (36.0-47.0); HEMOGLOBIN 11.4 g/dl (12.0-15.5); LYMPH # 8.4 10^3/uL (1.5-5.0); LYMPH % 66.6 % (24.0-44.0); MEAN CORPUSCULAR HEMOGLOBIN 32.8 pg (27.0-33.0); MEAN CORPUSCULAR HGB CONC 32.9 g/dl (32.0-36.5); MEAN CORPUSCULAR VOLUME 99.7 fl (80.0-96.0); MONO # 0.9 10^3/uL (0.0-0.8); MONO % 6.9 % (2.0-8.0); NEUTROPHILS # 3.1 10^3/uL (1.5-8.5); NEUTROPHILS % 24.8 % (36.0-66.0); PLATELET COUNT, AUTOMATED 192 10^3/uL (150-450); RED BLOOD COUNT 3.48 10^6/uL (4.00-5.40); WHITE BLOOD COUNT 12.6 10^3/uL (4.0-10.0)
[2024-08-29 08:28] LABS: IRON (FE) 72 UG/DL (50-170); LDH LACTATE DEHYDROGENASE 253 U/L (120-246)
[2024-08-29 08:29] LABS: ALBUMIN 3.6 G/DL (3.2-5.2); ALKALINE PHOSPHATASE 53 U/L (35-104); ALT/SGPT 21 U/L (7.0-40); AST/SGOT 21 U/L (<34); BILIRUBIN,TOTAL 0.5 MG/DL (0.3-1.2); BLOOD UREA NITROGEN 24 MG/DL (9-23); CALCIUM LEVEL 9.9 MG/DL (8.3-10.6); CARBON DIOXIDE LEVEL 28 MMOL/L (20-31); CHLORIDE LEVEL 108 MMOL/L (98-107); CREATININE FOR GFR 0.73 MG/DL (0.55-1.30); GLOMERULAR FILTRATION RATE > 60.0 (>32); GLUCOSE, FASTING 86 MG/DL (74-106); PERCENT SATURATION 24.6 % (13.2-45.0); POTASSIUM SERUM 4.6 MMOL/L (3.5-5.1); SODIUM LEVEL 143 MMOL/L (136-145); TOTAL IRON BINDING CAPACITY 293 UG/DL (250-425)
[2024-08-29 08:32] LABS: FERRITIN 46.2 NG/ML (7.3-270.7)
[2024-08-30 13:57] LABS: IMMUNOGLOBULIN G 671 MG/DL (650-1600)
== END ==
LOC: M LAB 07:15
PROVIDERS: ATTEND Internal Medicine Medical Oncology
DX: C91.10 Chronic lymphocytic leukemia of B-cell type not having achieved remission (principal)

== ENCOUNTER → 2024-10-14 | Outpatient (RCR) | payer MEDICARE | LOC: M PT 09-26 09:40 | PROVIDERS: ATTEND Nurse Practitioner Family | DX: N81.4 Uterovaginal prolapse, unspecified (principal) ==

== ENCOUNTER 2024-11-07 12:58 | Outpatient (RCR) | payer MEDICARE ==
[~2024-11-07 12:58] MED LIST changes: +DENO60SY2 SC; -PROL60SO SC
== END 2024-11-14 ==
LOC: M PT 12:58
PROVIDERS: ATTEND Nurse Practitioner Family
DX: N81.4 Uterovaginal prolapse, unspecified (principal)

== ENCOUNTER 2024-11-22 11:30 | Outpatient (RCR) | payer MEDICARE | END 2024-12-14 | LOC: M PT 11:30 | PROVIDERS: ATTEND Nurse Practitioner Family | DX: N81.4 Uterovaginal prolapse, unspecified (principal) ==

== ENCOUNTER → 2024-12-03 | Outpatient (REF) | payer MEDICARE | LOC: M LAB REF 17:09 | PROVIDERS: ATTEND Physician Assistant | DX: J22 Unspecified acute lower respiratory infection (principal) ==

== ENCOUNTER → 2024-12-06 | Outpatient (CLI) | payer MEDICARE | LOC: M RAD 11:09 | PROVIDERS: ATTEND Internal Medicine | DX: J06.9 Acute upper respiratory infection, unspecified (principal) ==

== ENCOUNTER 2024-12-20 15:41 | Inpatient (IN) | payer MEDICARE ==
[~2024-12-20] VITALS: Ht 160 cm; Wt 58.0 kg
[~2024-12-20 15:41] MED LIST changes: -ESTR62CR; +ESTR62CR PV
[2024-12-20 19:34] LABS: BASO # 0.1 10^3/uL (0.0-0.2); BASO % 0.3 % (0.0-1.0); HEMATOCRIT 35.3 % (36.0-47.0); HEMOGLOBIN 11.8 g/dl (12.0-15.5); LYMPH # 7.5 10^3/uL (1.5-5.0); LYMPH % 46.6 % (24.0-44.0); MEAN CORPUSCULAR HEMOGLOBIN 32.4 pg (27.0-33.0); MEAN CORPUSCULAR HGB CONC 33.4 g/dl (32.0-36.5); MONO # 0.9 10^3/uL (0.0-0.8); MONO % 5.4 % (2.0-8.0); NEUTROPHILS # 7.6 10^3/uL (1.5-8.5); NEUTROPHILS % 47.5 % (36.0-66.0); PLATELET COUNT, AUTOMATED 266 10^3/uL (150-450); RED BLOOD COUNT 3.64 10^6/uL (4.00-5.40); WHITE BLOOD COUNT 16.1 10^3/uL (4.0-10.0)
[2024-12-20] MEDS ORDERED: ISOVUE-370 76% 100ML VIAL As Ordered ONE (21:25)
[2024-12-20 22:02] LABS: CK-MB VALUE MASS 2.2 NG/ML (<3.6)
[2024-12-20 22:04] LABS: CALCIUM LEVEL 10.4 MG/DL (8.3-10.6); CREATININE FOR GFR 0.65 MG/DL (0.55-1.30); MB/CK RELATIVE INDEX 1.71 (< OR =4); POTASSIUM SERUM 4.2 MMOL/L (3.5-5.1)
[2024-12-20] MEDS ORDERED: ERYT5OIN25 OD (22:50)
[2024-12-20] MEDS ORDERED: HOME MED LIST COMPLETE! XX SCH (22:55)
[2024-12-20] MEDS ORDERED: MAALOX 30 ML SUSP *UDC PO PRN (23:55)
[2024-12-20] MEDS: diazePAM 5MG TABLET PO ONE (23:55)
[2024-12-20] MEDS ORDERED: MOM 30ML SUSPENSION UDC PO PRN (23:55)
[2024-12-20] MEDS ORDERED: ACETAMINOPHEN 325 MG TAB PO PRN (23:55)
[2024-12-21] MEDS: ASPIRIN 325 MG TAB PO ONE (00:22)
[2024-12-21] MEDS: CLOPIDOGREL 300 MG TAB (PLAVIX) PO STA (00:23)
[2024-12-21 01:25] LABS: ALBUMIN 2.8 G/DL (3.2-5.2); BILIRUBIN,DIRECT 0.1 MG/DL (<0.4); BILIRUBIN,TOTAL 0.3 MG/DL (0.3-1.2); CHOLESTEROL RISK RATIO 2.92 (<5); HDL CHOLESTEROL 46.5 MG/DL (>40); LDL CHOLESTEROL 80.5 MG/DL (<100); NON-HDL-C 89.5 MG/DL
[2024-12-21 01:30] LABS: INR 0.99; PARTIAL THROMBOPLASTIN TIME 28.5 SECONDS (24.8-34.2); PROTHROMBIN TIME 13.4 SECONDS (12.5-14.5)
[2024-12-21 01:38] LABS: HEMOGLOBIN A1c 5.3 % (4.0-6.0)
[2024-12-21] MEDS: ERYTHROMYCIN OPHTH OINT OU SCH (07:35)
[2024-12-21] MEDS: CLOPIDOGREL 75 MG TAB PO SCH (07:35)
[2024-12-21] MEDS: ATORVASTATIN 20 MG TAB PO SCH (07:35)
[2024-12-21] MEDS: DOCUSATE SODIUM 100MG CAPSULE PO SCH (07:35)
[2024-12-21] MEDS: ASPIRIN 81MG ENTERIC TABLET PO SCH (07:35)
[2024-12-21 08:10] VITALS: BP_SYST 159; BP_SYST 161; BP_SYST 169; BP_DIAS 68; BP_DIAS 72; BP_DIAS 73; TEMP 98.2; O2SAT 98
[2024-12-21 08:57] LABS: HEMATOCRIT 35.1 % (36.0-47.0); HEMOGLOBIN 11.6 g/dl (12.0-15.5); PLATELET COUNT, AUTOMATED 261 10^3/uL (150-450); RED BLOOD COUNT 3.62 10^6/uL (4.00-5.40); WHITE BLOOD COUNT 13.7 10^3/uL (4.0-10.0)
[2024-12-21] MEDS: METAMUCIL (PSYLLIUM) PACKET PO SCH (09:00)
[2024-12-21] MEDS: diazePAM 5MG TABLET PO ONE (09:37)
[2024-12-21 09:39] LABS: ALBUMIN 3.5 G/DL (3.2-5.2); BILIRUBIN,TOTAL 0.6 MG/DL (0.3-1.2); CALCIUM LEVEL 9.8 MG/DL (8.3-10.6); CREATININE FOR GFR 0.63 MG/DL (0.55-1.30); GLOMERULAR FILTRATION RATE 89.6 (>32); POTASSIUM SERUM 4.2 MMOL/L (3.5-5.1); TOTAL PROTEIN 6.3 G/DL (5.7-8.2)
[2024-12-21 11:39] VITALS: BP 123/62; TEMP 98; O2SAT 96
[2024-12-21] MEDS ORDERED: DOCUSATE SODIUM 100MG CAPSULE PO PRN (12:50)
[2024-12-21] MEDS ORDERED: SENOKOT S TAB PO PRN (12:50)
[2024-12-21 16:24] VITALS: BP 168/81; TEMP 98.9; O2SAT 99
[2024-12-21] MEDS ORDERED: ASPI81CH8 PO (18:58)
[2024-12-21] MEDS ORDERED: ATOR1TAB19 PO (18:58)
[2024-12-21] MEDS ORDERED: CLOP75TA2 PO (18:58)
[2024-12-22] MEDS ORDERED: ATORVASTATIN 10 MG TAB PO SCH (09:00)
[2024-12-22] MEDS ORDERED: CLOPIDOGREL 75 MG TAB PO SCH (09:00)
[2024-12-22] MEDS ORDERED: ASPIRIN 81MG CHEW TABLET PO SCH (21:00)
== END 2024-12-21 20:11 | disposition home or self-care (01) | DRG 69 ==
LOC: M ED 15:41 → M PCU 23:53 → M ED 12-21 08:14
PROVIDERS: ADMIT Family Medicine; ATTEND Student in an Organized Health Care Education/Training Program
PROC: B246ZZZ Ultrasonography of Right and Left Heart (ICD-10-PCS; principal; 2024-12-21)
DX: G45.9 Transient cerebral ischemic attack, unspecified (principal); M81.0 Age-related osteoporosis without current pathological fracture; M41.9 Scoliosis, unspecified; E78.5 Hyperlipidemia, unspecified; H91.93 Unspecified hearing loss, bilateral; D64.9 Anemia, unspecified; I34.2 Nonrheumatic mitral (valve) stenosis; Z86.0101 Personal history of adenomatous and serrated colon polyps; Z79.899 Other long term (current) drug therapy; Z88.2 Allergy status to sulfonamides; Z85.79 Personal history of other malignant neoplasms of lymphoid, hematopoietic and related tissues; Z85.828 Personal history of other malignant neoplasm of skin

== ENCOUNTER → 2024-12-30 | Outpatient (REF) | payer MEDICARE ==
[~2024-12-30] MED LIST changes: +ASPI81CH8 PO; +ATOR1TAB19 PO; +CLOP75TA2 PO; +ERYT5OIN25 OD
== END ==
LOC: M LAB REF 12:10
PROVIDERS: ATTEND Internal Medicine
DX: N39.0 Urinary tract infection, site not specified (principal)

== ENCOUNTER → 2025-02-27 | Outpatient (CLI) | payer MEDICARE ==
[2025-02-27 13:54] LABS: BASO # 0.1 10^3/uL (0.0-0.2); BASO % 0.5 % (0.0-1.0); EOS # 0.0 10^3/uL (0.0-0.5); EOS % 0.0 % (0.0-3.0); LYMPH # 7.3 10^3/uL (1.5-5.0); LYMPH % 63.0 % (24.0-44.0); MONO # 0.8 10^3/uL (0.0-0.8); MONO % 6.6 % (2.0-8.0); NEUTROPHILS # 3.5 10^3/uL (1.5-8.5); NEUTROPHILS % 29.8 % (36.0-66.0); PLATELET COUNT, AUTOMATED 187 10^3/uL (150-450)
[2025-02-27 13:57] LABS: LDH LACTATE DEHYDROGENASE 215.0 U/L (120-246)
[2025-02-27 13:58] LABS: ALT/SGPT 22.0 U/L (7.0-40); AST/SGOT 26.0 U/L (<34); CALCIUM LEVEL 10.6 MG/DL (8.3-10.6); CARBON DIOXIDE LEVEL 28.0 MMOL/L (20-31); CHLORIDE LEVEL 104.0 MMOL/L (98-107); CREATININE FOR GFR 0.74 MG/DL (0.55-1.30); GLOMERULAR FILTRATION RATE 81.2 (>32); POTASSIUM SERUM 4.7 MMOL/L (3.5-5.1); SODIUM LEVEL 142.0 MMOL/L (136-145)
== END ==
LOC: M PLALAB 09:52
PROVIDERS: ATTEND Internal Medicine Medical Oncology
DX: C91.10 Chronic lymphocytic leukemia of B-cell type not having achieved remission (principal)

== ENCOUNTER → 2025-04-25 | Outpatient (REF) | payer MEDICARE ==
[~2025-04-25] MED LIST changes: +ANAS1TAB2 PO
[2025-04-25 19:08] LABS: BASO # 0.1 10^3/uL (0.0-0.2); BASO % 0.7 % (0.0-1.0); EOS # 0.0 10^3/uL (0.0-0.5); EOS % 0.3 % (0.0-3.0); LYMPH # 7.1 10^3/uL (1.5-5.0); LYMPH % 60.1 % (24.0-44.0); MONO # 0.6 10^3/uL (0.0-0.8); MONO % 5.3 % (2.0-8.0); NEUTROPHILS # 4.0 10^3/uL (1.5-8.5); NEUTROPHILS % 33.3 % (36.0-66.0); PLATELET COUNT, AUTOMATED 179 10^3/uL (150-450)
[2025-04-25 19:13] LABS: ALT/SGPT 21 U/L (7.0-40); AST/SGOT 24 U/L (<34); CALCIUM LEVEL 10.5 MG/DL (8.3-10.6); CARBON DIOXIDE LEVEL 27 MMOL/L (20-31); CHLORIDE LEVEL 104 MMOL/L (98-107); CREATININE FOR GFR 0.72 MG/DL (0.55-1.30); GLOMERULAR FILTRATION RATE 84.0 (>32); IRON (FE) 87 UG/DL (50-170); PERCENT SATURATION 31.8 % (13.2-45.0); POTASSIUM SERUM 4.3 MMOL/L (3.5-5.1); SODIUM LEVEL 140 MMOL/L (136-145)
[2025-04-25 19:16] LABS: VITAMIN B12 LEVEL 377 PG/ML (211-911)
== END ==
LOC: M LABDRAWC 17:53
PROVIDERS: ATTEND Internal Medicine Medical Oncology
DX: C50.919 Malignant neoplasm of unspecified site of unspecified female breast (principal); C91.10 Chronic lymphocytic leukemia of B-cell type not having achieved remission

== ENCOUNTER → 2025-08-14 | Outpatient (CLI) | payer MEDICARE ==
[2025-08-14 14:06] LABS: IRON (FE) 65.0 UG/DL (50-170); LDH LACTATE DEHYDROGENASE 247.0 U/L (120-246)
[2025-08-14 14:07] LABS: BASO # 0.1 10^3/uL (0.0-0.2); BASO % 0.5 % (0.0-1.0); EOS # 0.1 10^3/uL (0.0-0.5); EOS % 0.6 % (0.0-3.0); LYMPH # 7.4 10^3/uL (1.5-5.0); LYMPH % 58.2 % (24.0-44.0); MONO # 0.7 10^3/uL (0.0-0.8); MONO % 5.8 % (2.0-8.0); NEUTROPHILS # 4.4 10^3/uL (1.5-8.5); NEUTROPHILS % 34.7 % (36.0-66.0); PERCENT SATURATION 22.1 % (13.2-45.0); PLATELET COUNT, AUTOMATED 197 10^3/uL (150-450)
[2025-08-14 14:08] LABS: ALT/SGPT 25.0 U/L (7.0-40); AST/SGOT 26.0 U/L (<34); CALCIUM LEVEL 10.4 MG/DL (8.3-10.6); CARBON DIOXIDE LEVEL 29.0 MMOL/L (20-31); CHLORIDE LEVEL 102.0 MMOL/L (98-107); CREATININE FOR GFR 0.71 MG/DL (0.55-1.30); GLOMERULAR FILTRATION RATE 85.4 (>32); POTASSIUM SERUM 4.4 MMOL/L (3.5-5.1); SODIUM LEVEL 138.0 MMOL/L (136-145)
== END ==
LOC: M PLALAB 09:58
PROVIDERS: ATTEND Internal Medicine Medical Oncology
DX: C91.10 Chronic lymphocytic leukemia of B-cell type not having achieved remission (principal)